=== PATIENT | female | born 1955 | race Hispanic/Latino ===

== ENCOUNTER 2018-06-06 14:32 | Emergency (ER) | payer SELFPAY ==
[~2018-06-06] VITALS: Ht 157.5 cm; Wt 70.0 kg
[~2018-06-06 14:32] MED LIST: ACETAMIN500 M2 PO; CEPHALEXIN500 MG PO; CIPROFLOXACN500 MG PO; KEFLEX250 MG PO; NAPROSYN375 MG PO; ULTRAM50 MG PO
[2018-06-06] MEDS ORDERED: LORTAB 1010 MG PO (16:18)
[2018-06-06] MEDS ORDERED: BACTRIM DS1 TAB PO (16:18)
[2018-06-06] MEDS ORDERED: CEPHALEXIN500 M1 PO (16:18)
[2018-06-06 16:36] VITALS: BP 151/90
== END 2018-06-06 16:36 | disposition home or self-care (01) | DRG 603 ==
LOC: ED 14:32
PROC: 0H9GXZZ Drainage of Left Hand Skin, External Approach (ICD-10-PCS; principal; 2018-06-06)
DX: L03.012 Cellulitis of left finger (principal); B95.61 Methicillin susceptible Staphylococcus aureus infection as the cause of diseases classified elsewhere

== ENCOUNTER 2018-06-10 18:25 | Emergency (ER) | payer SELFPAY ==
[~2018-06-10] VITALS: Ht 157.5 cm; Wt 59.0 kg
[~2018-06-10 18:25] MED LIST changes: +BACTRIM DS1 TAB PO; +CEPHALEXIN500 M1 PO; +LORTAB 1010 MG PO
[2018-06-10 20:08] VITALS: BP 132/85
== END 2018-06-10 20:16 | disposition home or self-care (01) | DRG 603 ==
LOC: ED 18:25
PROC: 0H9GXZZ Drainage of Left Hand Skin, External Approach (ICD-10-PCS; principal; 2018-06-10)
DX: L03.012 Cellulitis of left finger (principal)

== ENCOUNTER 2018-06-11 18:30 | Emergency (ER) | payer SELFPAY ==
[~2018-06-11] VITALS: Ht 157.5 cm; Wt 52.0 kg
[2018-06-11 19:25] VITALS: BP 121/71
== END 2018-06-11 19:25 | disposition home or self-care (01) | DRG 951 ==
LOC: ED 18:30
DX: Z48.01 Encounter for change or removal of surgical wound dressing (principal)

== ENCOUNTER 2018-06-13 15:59 | Emergency (ER) | payer SELFPAY ==
[~2018-06-13] VITALS: Ht 157.5 cm; Wt 50.0 kg
[2018-06-13 17:17] VITALS: BP 127/80
== END 2018-06-13 17:29 | disposition home or self-care (01) | DRG 951 ==
LOC: ED 15:59
DX: Z48.01 Encounter for change or removal of surgical wound dressing (principal)

== ENCOUNTER 2018-11-29 18:27 | Emergency (ER) | payer SELFPAY ==
[~2018-11-29] VITALS: Ht 157.5 cm; Wt 48.2 kg
[2018-11-29 19:31] LABS: HEMATOCRIT 39.8 % (37.0-47.0); HEMOGLOBIN 13.2 g/dl (12.0-16.0); IMMATURE GRANULOCYTES 0.1 % (0.0-5.0); MEAN CORPUSCULAR HGB 29.9 pG CALC (26.0-32.0); MEAN CORPUSCULAR HGB CONC 33.2 g/L CALC (32.0-36.0); NEUT# 3.39 thou/uL (2.00-7.15); RED BLOOD COUNT 4.42 mill/uL (4.20-5.60); RED CELL DISTRI WIDTH 12.5 % (11.5-15.5)
[2018-11-29 19:32] LABS: URINE BILIRUBIN - DIPSTICK NEGATIVE (NEGATIVE); URINE BLOOD DIPSTICK NEGATIVE (NEGATIVE); URINE COLOR YELLOW; URINE GLUCOSE - DIPSTICK NEGATIVE (NEGATIVE); URINE KETONE NEGATIVE (NEGATIVE); URINE LEUK ESTERASE TRACE (NEGATIVE); URINE NITRITE - DIPSTICK NEGATIVE (Negative); URINE PROTEIN - DIPSTICK NEGATIVE (NEG-TRACE); URINE SPECIFIC GRAVITY <=1.005; URINE UROBILINOGEN - DIPSTICK 0.2 E.U./dL (0.2)
[2018-11-29 19:49] LABS: ALBUMIN 4.3 g/dL (3.2-5.0); ALKALINE PHOSPHATASE 114 u/l (38-126); ANION GAP 14 (6-22 (CALC)); BILIRUBIN, TOTAL 0.3 mg/dL (0.0-1.4); BUN 6 mg/dL (8-23); BUN/CREATININE RATIO 12 (12-20 (CALC)); CARBON DIOXIDE 22 mmol/l (22-30); CHLORIDE 111 mmol/l (95-108); CREATININE 0.5 mg/dL (0.5-1.0); GFR > 60 ML/MIN (>=60 (CALC)); GFR FOR AFR.AMER. > 60 ML/MIN (>=60 (CALC)); LIPASE 94 u/l (23-300); POTASSIUM 4.2 mmol/l (3.5-5.1); SGOT/AST 27 u/l (9-36); SODIUM 142 mmol/l (137-146); TOTAL PROTEIN 7.6 g/dL (6.3-8.2)
[2018-11-29 21:34] VITALS: BP 149/77
== END 2018-11-29 21:48 | disposition home or self-care (01) | DRG 761 ==
LOC: ED 18:27
PROVIDERS: Family Medicine
DX: N81.4 Uterovaginal prolapse, unspecified (principal); N95.0 Postmenopausal bleeding; R51 Headache; R10.31 Right lower quadrant pain
CPT/HCPCS: Q9967

== ENCOUNTER 2022-07-14 08:15 | Emergency (ER) | payer SELFPAY ==
[~2022-07-14] VITALS: Ht 157.5 cm; Wt 65.0 kg
[2022-07-14 08:22] VITALS: BP 165/86
[2022-07-14 08:30] VITALS: BP 147/84
[2022-07-14 08:45] VITALS: BP 164/89
[2022-07-14] MEDS ORDERED: OFLOXACIN0.3 % OD (08:51)
[2022-07-14 09:01] VITALS: BP 161/137
== END 2022-07-14 09:04 | disposition home or self-care (01) | DRG 125 ==
LOC: ED 08:15
DX: H57.11 Ocular pain, right eye (principal)

== ENCOUNTER 2022-09-01 07:29 | Emergency (ER) | payer SELFPAY ==
[2022-09-01] VITALS (12 sets, daily range): BP systolic 66–136; BP diastolic 45–84
[~2022-09-01] VITALS: Ht 152.4 cm; Wt 64.0 kg
[~2022-09-01 07:29] MED LIST changes: +OFLOXACIN0.3 % OD
[2022-09-01 07:57] LABS: BASO% 0.2 % (0-3); EOS% 1.1 % (0-8); HEMATOCRIT 39.1 % (37.0-47.0); HEMOGLOBIN 12.8 g/dl (12.0-16.0); IMMATURE GRANULOCYTES 0.2 % (0.0-5.0); LYMPH% 13.1 % (15-41); MEAN CELL VOLUME 89.5 fL CALC (80.0-100.0); MEAN CORPUSCULAR HGB 29.3 pG CALC (26.0-32.0); MEAN CORPUSCULAR HGB CONC 32.7 g/dL CAL (32.0-36.0); MONO% 7.8 % (2-13); NEUT# 9.52 thou/uL (2.00-7.15); NEUT% 77.6 % (42-76); RED BLOOD COUNT 4.37 mill/uL (4.20-5.60); RED CELL DISTRI WIDTH 13.4 % (11.5-15.5)
[2022-09-01 08:10] LABS: ALBUMIN 4.2 g/dL (3.2-5.0); ALKALINE PHOSPHATASE 120 u/l (38-126); BILIRUBIN, TOTAL 0.3 mg/dL (0.0-1.4); BUN 21 mg/dL (8-23); BUN/CREATININE RATIO 36 (12-20 (CALC)); CARBON DIOXIDE 20 mmol/l (22-30); CHLORIDE 111 mmol/l (95-108); CREATININE 0.6 mg/dL (0.5-1.0); GFR FOR AFR.AMER. > 60 ML/MIN (>=60 (CALC)); GFR OTHER RACES > 60 ML/MIN (>=60 (CALC)); LIPASE 114 u/l (23-300); SGOT/AST 35 u/l (9-36); SODIUM 140 mmol/l (137-146); TOTAL PROTEIN 7.5 g/dL (6.3-8.2)
[2022-09-01 08:11] LABS: URINE BILIRUBIN - DIPSTICK NEGATIVE (NEGATIVE); URINE BLOOD DIPSTICK TRACE-INTACT (NEGATIVE); URINE COLOR YELLOW; URINE GLUCOSE - DIPSTICK NEGATIVE (NEGATIVE); URINE KETONE NEGATIVE (NEGATIVE); URINE LEUK ESTERASE SMALL (NEGATIVE); URINE NITRITE - DIPSTICK NEGATIVE (Negative); URINE PH 5.5 (4.5-8.0); URINE PROTEIN - DIPSTICK NEGATIVE (NEG-TRACE); URINE SPECIFIC GRAVITY 1.025; URINE UROBILINOGEN - DIPSTICK 0.2 E.U./dL (0.2)
[2022-09-01 08:12] LABS: ANION GAP 13 (6-22 (CALC)); POTASSIUM 3.8 mmol/l (3.5-5.1)
[2022-09-01 08:23] LABS: URINE RBC 0-2 RBC/hpf (0-5); URINE SQUAMOUS EPITHELIAL CELL FEW EPI/hpf (0-FEW)
[2022-09-01] MEDS ORDERED: ZOFRAN4 MG/TAB PO (11:32)
== END 2022-09-01 11:49 | disposition home or self-care (01) | DRG 446 ==
LOC: ED 07:29
PROVIDERS: Family Medicine
DX: K80.20 Calculus of gallbladder without cholecystitis without obstruction (principal); R10.31 Right lower quadrant pain; R10.11 Right upper quadrant pain

== ENCOUNTER 2022-12-19 09:26 | Emergency (ER) | payer SELFPAY ==
[~2022-12-19] VITALS: Ht 152.4 cm; Wt 46.2 kg
[2022-12-19] VITALS (14 sets, daily range): BP systolic 131–166; BP diastolic 54–70
[~2022-12-19 09:26] MED LIST changes: +ZOFRAN4 MG/TAB PO
[2022-12-19] MEDS ORDERED: NAPROXEN500 MG PO (12:26)
== END 2022-12-19 12:45 | disposition home or self-care (01) | DRG 556 ==
LOC: ED 09:26
DX: M25.511 Pain in right shoulder (principal)

== ENCOUNTER 2023-04-03 19:27 | Emergency (ER) | payer SELFPAY ==
[2023-04-03] VITALS (7 sets, daily range): BP systolic 142–163; BP diastolic 53–80
[~2023-04-03] VITALS: Ht 144.8 cm; Wt 44.4 kg
[~2023-04-03 19:27] MED LIST changes: +NAPROXEN500 MG PO
[2023-04-03 21:25] LABS: BASO% 0.1 % (0-3); HEMATOCRIT 41.5 % (37.0-47.0); HEMOGLOBIN 13.7 g/dl (12.0-16.0); IMMATURE GRANULOCYTES 0.1 % (0.0-5.0); LYMPH% 38.5 % (15-41); MEAN CELL VOLUME 89.2 fL CALC (80.0-100.0); MEAN CORPUSCULAR HGB 29.5 pG CALC (26.0-32.0); MONO% 8.6 % (2-13); NEUT# 3.87 thou/uL (2.00-7.15); NEUT% 50.7 % (42-76); RED BLOOD COUNT 4.65 mill/uL (4.20-5.60); RED CELL DISTRI WIDTH 13.5 % (11.5-15.5)
[2023-04-03 21:26] LABS: URINE BILIRUBIN - DIPSTICK Negative (NEGATIVE); URINE BLOOD DIPSTICK Trace-lysed (NEGATIVE); URINE GLUCOSE - DIPSTICK Negative (NEGATIVE); URINE KETONE Negative (NEGATIVE); URINE NITRITE - DIPSTICK Negative (Negative); URINE PROTEIN - DIPSTICK Negative (NEG-TRACE); URINE UROBILINOGEN - DIPSTICK 0.2 E.U./dL (0.2)
[2023-04-03 21:30] LABS: AMYLASE 80 u/l (30-110); LIPASE 97 u/l (23-300)
[2023-04-03 21:30] LABS: ALBUMIN 4.5 g/dL (3.2-5.0); ALKALINE PHOSPHATASE 98 u/l (38-126); ANION GAP 15 (6-22 (CALC)); BUN 6 mg/dL (8-23); BUN/CREATININE RATIO 10 (12-20 (CALC)); CARBON DIOXIDE 23 mmol/l (22-30); CHLORIDE 106 mmol/l (95-108); CREATININE 0.5 mg/dL (0.5-1.0); GFR FOR AFR.AMER. > 60 ML/MIN (>=60 (CALC)); GFR OTHER RACES > 60 ML/MIN (>=60 (CALC)); POTASSIUM 4.2 mmol/l (3.5-5.1); SGOT/AST 37 u/l (9-36); SODIUM 139 mmol/l (137-146); TOTAL PROTEIN 8.4 g/dL (6.3-8.2)
[2023-04-03 21:32] LABS: BILIRUBIN, TOTAL 0.5 mg/dL (0.02-1.3)
[2023-04-03 21:33] LABS: URINE COLOR Straw; URINE LEUK ESTERASE Small (NEGATIVE)
[2023-04-03 21:41] LABS: URINE RBC 0-2 RBC/hpf (0-5); URINE SQUAMOUS EPITHELIAL CELL FEW EPI/hpf (0-FEW)
[2023-04-03] MEDS ORDERED: MIRALAX17 GM PO (23:25)
== END 2023-04-03 23:37 | disposition home or self-care (01) | DRG 392 ==
LOC: ED 19:27
PROVIDERS: Emergency Medicine
DX: K59.00 Constipation, unspecified (principal); Z20.822 Contact with and (suspected) exposure to COVID-19
CPT/HCPCS: Q9967

== ENCOUNTER 2023-04-14 15:13 | Emergency (ER) | payer SELFPAY ==
[~2023-04-14] VITALS: Ht 144.8 cm; Wt 71.0 kg
[2023-04-14] VITALS (8 sets, daily range): BP systolic 134–159; BP diastolic 55–76
[~2023-04-14 15:13] MED LIST changes: +MIRALAX17 GM PO
[2023-04-14 16:00] LABS: BASO% 0.2 % (0-3); EOS% 1.7 % (0-8); HEMATOCRIT 39.3 % (37.0-47.0); HEMOGLOBIN 13.2 g/dl (12.0-16.0); IMMATURE GRANULOCYTES 0.1 % (0.0-5.0); LYMPH% 41.4 % (15-41); MEAN CELL VOLUME 88.7 fL CALC (80.0-100.0); MEAN CORPUSCULAR HGB 29.8 pG CALC (26.0-32.0); MEAN CORPUSCULAR HGB CONC 33.6 g/dL CAL (32.0-36.0); MONO% 7.4 % (2-13); NEUT# 4.1 thou/uL (2.00-7.15); NEUT% 49.2 % (42-76); RED BLOOD COUNT 4.43 mill/uL (4.20-5.60)
[2023-04-14 16:14] LABS: ALBUMIN 4.2 g/dL (3.2-5.0); ALKALINE PHOSPHATASE 94 u/l (38-126); ANION GAP 13 (6-22 (CALC)); BILIRUBIN, TOTAL 0.5 mg/dL (0.02-1.3); BUN 7 mg/dL (8-23); BUN/CREATININE RATIO 14 (12-20 (CALC)); CARBON DIOXIDE 24 mmol/l (22-30); CHLORIDE 105 mmol/l (95-108); CREATININE 0.5 mg/dL (0.5-1.0); GFR FOR AFR.AMER. > 60 ML/MIN (>=60 (CALC)); GFR OTHER RACES > 60 ML/MIN (>=60 (CALC)); POTASSIUM 4.1 mmol/l (3.5-5.1); SGOT/AST 34 u/l (9-36); SODIUM 138 mmol/l (137-146); TOTAL PROTEIN 7.9 g/dL (6.3-8.2)
[2023-04-14] MEDS ORDERED: VALACYCLOVIR HCL1 GM PO (16:38)
[2023-04-14] MEDS ORDERED: TYLENOL # 31 TA1 PO (16:40)
[2023-04-14] MEDS ORDERED: VALACYCLOVIR HYD1 GM PO (17:03)
[2023-04-14] MEDS ORDERED: TRAMADOL HYDROC50 M1 PO (17:03)
[2023-04-15] MEDS ORDERED: TRAMADOL HYDROC50 M1 PO ×2 (12:27→15:24)
[2023-04-15] MEDS ORDERED: VALACYCLOVIR HYD1 GM PO ×2 (12:27→15:24)
== END 2023-04-14 18:12 | disposition home or self-care (01) | DRG 596 ==
LOC: ED 15:13
PROVIDERS: Family Medicine
DX: B02.9 Zoster without complications (principal); Z20.822 Contact with and (suspected) exposure to COVID-19